=== PATIENT | male | born 1985 | race Asian ===

== ENCOUNTER 2021-10-14 03:45 | Emergency (ER) | payer OTHER ==
[~2021-10-14] VITALS: Ht 170.2 cm; Wt 59.1 kg
[2021-10-14] MEDS ORDERED: ALBU8HFA IH (03:51)
[2021-10-14] MEDS ORDERED: ACETAMINOPHEN 500 MG TABLET PO ONE (04:30)
[2021-10-14] MEDS ORDERED: IBUPROFEN 600 MG TABLET PO ONE (04:30)
[2021-10-14 04:40] LABS: HEMATOCRIT 42.1 % (41-53); HEMOGLOBIN 14.3 g/dL (13.5-17.5); MEAN CORPUSCULAR HGB CONC 33.9 G/dL (31.0-37.0); MEAN CORPUSCULAR VOLUME 88 fL (80-100); PLATELET COUNT (AUTO) 347 K/uL (150-450); RED BLOOD CELL COUNT(AUTO) 4.76 MIL/uL (4.50-5.90); RED CELL DISTRIBUTION WIDTH 13.4 % (11.5-14.5)
[2021-10-14 04:45] LABS: APPEARANCE,URINE CLEAR (CLEAR); BILIRUBIN,URINE NEGATIVE (NEGATIVE); GLUCOSE, URINE (UA) NEGATIVE (NEGATIVE); KETONES,URINE NEGATIVE (NEGATIVE); LEUKOCYTE ESTERASE ,URINE NEGATIVE (NEGATIVE); NITRATE,URINE NEGATIVE (NEGATIVE); OCCULT BLOOD,URINE NEGATIVE (NEGATIVE); PROTEIN,URINE TRACE mg/dL (NEGATIVE); SPECIFIC GRAVITIY, URINE 1.019 (1.003-1.030); UROBILINOGEN,URINE <=1.0 mg/dL (<=1.0)
[2021-10-14 04:53] LABS: ANION GAP 10 mmol/L (8-16); CALCIUM, TOTAL 9.1 mg/dL (8.8-10.5); CARBON DIOXIDE 29 mmol/L (22-29); CHLORIDE 100 mmol/L (98-107); CREATININE 0.83 mg/dL (0.60-1.30); GLOMERULAR FILTR. RATE CALC > 60 mL/min (>60); GLUCOSE,RANDOM 109 mg/dL (70-110); POTASSIUM 4.6 mmol/L (3.5-5.1); SODIUM SERUM 139 mmol/L (136-145); UREA NITROGEN, BLOOD 7 mg/dL (7-18)
[2021-10-14 05:07] LABS: ALANINE AMINOTRANSFERASE 103 U/L (12-78); ALBUMIN 3.1 g/dL (3.4-5.0); ALKALINE PHOSPHATASE 184 U/L (46-116); ASPARTATE AMINOTRANSFERASE 25 U/L (15-37); BILIRUBIN,TOTAL 0.3 mg/dL (0.1-1.0); LIPASE 150 U/L (73-393); TOTAL PROTEIN, SERUM 7.7 g/dL (6.4-8.2)
[2021-10-14 05:57] LABS: BACTERIA,URINE None Seen /HPF (None Seen); RBC,URINE None Seen /HPF (0-2); SQUAMOUS EPITHELIAL CELL,UR Few /LPF (None Seen); WBC,URINE None Seen /HPF (0-5)
[2021-10-14 06:00] VITALS: BP 122/69
[2021-10-14 06:24] LABS: BAND NEUTROPHILS % (MANUAL) 15 % (0-5); LYMPHOCYTES % (MANUAL) 22 % (22-44); MONOCYTES % (MANUAL) 3 % (2-9); SEGMENTED NEUTROPHILS % 60 % (40-70)
== END 2021-10-14 06:31 | disposition home or self-care (01) ==
LOC: EMS 03:51
DX: R10.9 Unspecified abdominal pain (principal); R50.9 Fever, unspecified; R35.0 Frequency of micturition; J45.909 Unspecified asthma, uncomplicated; F12.90 Cannabis use, unspecified, uncomplicated
CPT/HCPCS: 80053; 81001; 83690; 85025; 99283

== ENCOUNTER 2023-11-28 06:44 | Emergency (ER) | payer OTHER ==
[~2023-11-28] VITALS: Ht 170.2 cm; Wt 64.1 kg
[~2023-11-28 06:44] MED LIST: ALBU18HF12 IH
[2023-11-28 06:55] VITALS: BP 142/68; PULSE 75; RESP 16; TEMP 97.8
[2023-11-28] MEDS ORDERED: AMOX1TAB16 PO (07:11)
[2023-11-28] MEDS: RABIES VACCINE, HUMAN DIPLOID/PF 2.5 UNITS/ML VIAL IM. ONE (07:22)
[2023-11-28] MEDS: PERTUSS(ACELL),DIPH,TET/PF 0.5 ML SYRINGE [ADULT] IM. ONE (07:26)
[2023-11-28] MEDS: RABIES IMMUNE GLOBULIN/PF 150 UNIT/ML 10 ML VIAL IM. ONE (07:27)
[2023-11-28] MEDS: AMOX TR/POT CLAV 875 MG/125 MG TABLET PO ONE (07:28)
[2023-11-28] MEDS: BACITRACIN 0.9 GM PACKET OINTMENT TP ONE (07:28)
== END 2023-11-28 07:46 | disposition home or self-care (01) ==
LOC: EMS 06:44
DX: S81.852A Open bite, left lower leg, initial encounter (principal); S80.811A Abrasion, right lower leg, initial encounter; Z29.14 Encounter for prophylactic rabies immune globulin; W54.0XXA Bitten by dog, initial encounter; Y93.89 Activity, other specified; Y92.89 Other specified places as the place of occurrence of the external cause; Y99.8 Other external cause status; J45.909 Unspecified asthma, uncomplicated
CPT/HCPCS: 90375; 90471; 90472; 90675; 90715; 96372; 99284

== ENCOUNTER 2023-12-01 06:14 | Emergency (ER) | payer OTHER ==
[~2023-12-01] VITALS: Ht 170.2 cm; Wt 64.1 kg
[~2023-12-01 06:14] MED LIST changes: -ALBU18HF12 IH; +AMOX1TAB16 PO
[2023-12-01 06:17] VITALS: BP 136/82; PULSE 66; RESP 16; TEMP 97.5
[2023-12-01] MEDS: RABIES VACCINE, HUMAN DIPLOID/PF 2.5 UNITS/ML VIAL IM. ONE (07:10)
== END 2023-12-01 07:19 | disposition home or self-care (01) ==
LOC: EMS 06:16
DX: S81.852D Open bite, left lower leg, subsequent encounter (principal); S81.851D Open bite, right lower leg, subsequent encounter; J45.909 Unspecified asthma, uncomplicated; W54.0XXD Bitten by dog, subsequent encounter
CPT/HCPCS: 90471; 90675; 99281